=== PATIENT | female | born 2000 | race Caucasian/White ===

== ENCOUNTER 2020-12-04 20:35 | Inpatient (IN) ==
[~2020-12-04 20:35] MED LIST: Ringers Solution, Lactated 1,000 ML ONE
[2020-12-04] MEDS ORDERED: Ondansetron 4 MG/2 ML VIAL IVP PRN (20:43)
[2020-12-04] MEDS ORDERED: Naloxone 0.4 MG/ML INJ IVP PRN (20:43)
[2020-12-04] MEDS ORDERED: Famotidine 20 MG/2 ML VIAL IVP PRN (20:43)
[2020-12-04] MEDS ORDERED: *HR* Nalbuphine 10 MG/ML AMPUL IV PRN (20:43)
[2020-12-04] MEDS ORDERED: Metoclopramide 10 MG/2 ML VIAL IVP PRN (20:43)
[2020-12-04] MEDS ORDERED: Ringers Solution, Lactated 1,000 ML ONE (20:43)
[2020-12-04] MEDS ORDERED: Ringers Solution, Lactated 1,000 ML IVC SCH (20:45)
[2020-12-04 21:05] LABS: Basophils % 0.2 %; Eosinophils % 0.3 %; Hematocrit 32.8 % (35.3-44.9); Hemoglobin 10.8 g/dL (11.5-15.4); Immature Granulocytes % 0.4 % (0-4); Lymphocytes # 1.4 K/mcL (0.6-4.6); Lymphocytes % 10.3 %; Mean Corpuscular HGB Conc 32.9 g/dL (31.6-35.5); Mean Corpuscular Hemoglobin 29.8 pg (28.0-33.3); Mean Corpuscular Volume 90.6 fL (83.0-100.0); Monocytes # 0.7 K/mcL (0.0-1.3); Neutrophils # 11.7 K/mcL (1.6-8.9); Platelet Count 255 K/mcL (140-400); Red Blood Count 3.62 M/mcL (3.82-4.97); Red Cell Distribution Width 13.6 % (11.5-14.5); Segmented Neutrophils % 83.8 %; White Blood Count 13.9 K/mcL (4.3-11.1)
[2020-12-04] MEDS ORDERED: *HR* FentaNYL (PF) 100 MCG/2 ML VIAL EP ONE (21:18)
[2020-12-04] MEDS ORDERED: EPHEDrine 50 MG/ML VIAL IVP PRN (21:18)
[2020-12-04] MEDS ORDERED: Ropivacaine/PF 0.2% 20 ML VIAL EP ONE (21:18)
[2020-12-04] MEDS ORDERED: Epidural Premix (fent/bupiv) 110 ML EP SCH (21:30)
[2020-12-05] MEDS ORDERED: Oxytocin 20 units/ LR 1000 mL 20 UNIT/1,000 ML BAG IVC ONE ×2 (00:38→03:29)
[2020-12-05] MEDS ORDERED: Rho Immune Globulin 1,500 UNIT SYRINGE IM PRN (03:29)
[2020-12-05] MEDS ORDERED: Oxytocin 20 units/ LR 1000 mL 20 UNIT/1,000 ML BAG IVC SCH (03:29)
[2020-12-05] MEDS ORDERED: Measles/Mumps/Rubella Vacc 0.5 ML VIAL SQ PRN (03:29)
[2020-12-05] MEDS ORDERED: Ondansetron ODT 4 MG TAB.RAPDIS SL PRN (03:29)
[2020-12-05] MEDS ORDERED: Lanolin 7 G OINT...G. TP PRN (03:29)
[2020-12-05] MEDS ORDERED: Benzocaine/Menthol 56 GM AEROSOL SPRAY TP PRN (03:29)
[2020-12-05] MEDS: Ibuprofen 600 MG TABLET PO SCH ×3 (07:19→17:42)
[2020-12-05] MEDS: Acetaminophen 325 MG TABLET PO SCH ×2 (07:19→17:41)
[2020-12-05] MEDS: Prenatal Vit/FA 1 EACH TABLET PO SCH (08:51)
[2020-12-06] MEDS: Ibuprofen 600 MG TABLET PO SCH ×2 (02:18→08:56)
[2020-12-06] MEDS: Acetaminophen 325 MG TABLET PO SCH ×2 (02:20→09:33)
[2020-12-06 08:38] VITALS: BP 104/67; PULSE 52; TEMP 98.3; O2SAT 100
[2020-12-06] MEDS: Prenatal Vit/FA 1 EACH TABLET PO SCH (08:56)
== END 2020-12-06 13:54 | disposition home or self-care (01) | DRG 807 ==
LOC: 1NENULAB → 1NENUOBS 12-05 04:31
PROVIDERS: ADMIT Obstetrics & Gynecology; ATTEND Obstetrics & Gynecology